=== PATIENT | male | born 1995 | race Hispanic/Latino ===

== ENCOUNTER 2020-08-06 19:09 | Emergency (ER) | payer BC ==
[~2020-08-06] VITALS: Ht 170.2 cm; Wt 95.0 kg
[2020-08-06] MEDS ORDERED: AMOXICILLIN875 MG PO (20:01)
[2020-08-06 21:00] VITALS: BP 145/94
== END 2020-08-06 21:00 | disposition home or self-care (01) | DRG 153 ==
LOC: ED 19:09
DX: J02.9 Acute pharyngitis, unspecified (principal); F17.210 Nicotine dependence, cigarettes, uncomplicated; Z20.822 Contact with and (suspected) exposure to COVID-19

== ENCOUNTER 2020-10-04 13:03 | Emergency (ER) | payer BC ==
[~2020-10-04 13:03] MED LIST: AMOXICILLIN875 MG PO
[2020-10-04 16:02] LABS: URINE BILIRUBIN - DIPSTICK NEGATIVE (NEGATIVE); URINE BLOOD DIPSTICK NEGATIVE (NEGATIVE); URINE COLOR YELLOW; URINE GLUCOSE - DIPSTICK NEGATIVE (NEGATIVE); URINE KETONE NEGATIVE (NEGATIVE); URINE LEUK ESTERASE NEGATIVE (NEGATIVE); URINE PROTEIN - DIPSTICK NEGATIVE (NEG-TRACE); URINE SPECIFIC GRAVITY >=1.030; URINE UROBILINOGEN - DIPSTICK 0.2 E.U./dL (0.2)
[2020-10-04 16:03] LABS: URINE NITRITE - DIPSTICK NEGATIVE (Negative)
[2020-10-04 16:39] VITALS: BP 119/76
== END 2020-10-04 16:41 | disposition home or self-care (01) | DRG 552 ==
LOC: ED 13:03
PROVIDERS: Family Medicine
DX: M54.5 Low back pain (principal); M54.6 Pain in thoracic spine

== ENCOUNTER 2022-05-29 20:27 | Emergency (ER) | payer SELFPAY ==
[~2022-05-29] VITALS: Ht 170.2 cm; Wt 100.0 kg
[2022-05-29 20:50] VITALS: BP 128/82
[2022-05-29 21:00] VITALS: BP 134/60
[2022-05-29 21:03] LABS: BASO% 0.2 % (0-3); EOS% 0.9 % (0-8); HEMATOCRIT 48.2 % (39.0-50.0); HEMOGLOBIN 16.5 g/dl (14.0-18.0); IMMATURE GRANULOCYTES 0.4 % (0.0-5.0); LYMPH% 19.9 % (15-41); MEAN CELL VOLUME 96.4 fL CALC (80.0-100.0); MEAN CORPUSCULAR HGB CONC 34.2 g/dL CAL (32.0-36.0); MONO% 6.2 % (2-13); NEUT# 8.76 thou/uL (1.82-7.42); NEUT% 72.4 % (42-76); RED CELL DISTRI WIDTH 13.5 % (11.5-15.5)
[2022-05-29 21:20] LABS: ALBUMIN 4.4 g/dL (3.2-5.0); ALKALINE PHOSPHATASE 84 u/l (38-126); ANION GAP 13 (6-22 (CALC)); BILIRUBIN, TOTAL 0.5 mg/dL (0.2-1.3); BUN 15 mg/dL (9-20); BUN/CREATININE RATIO 22 (12-20 (CALC)); CARBON DIOXIDE 22 mmol/l (22-30); CHLORIDE 108 mmol/l (95-108); CPK 124 u/l (55-170); CREATININE 0.7 mg/dL (0.7-1.3); ETHYL ALCOHOL 0 mg/dl (0-30); GFR FOR AFR.AMER. > 60 ML/MIN (>=60 (CALC)); GFR OTHER RACES > 60 ML/MIN (>=60 (CALC)); POTASSIUM 3.7 mmol/l (3.5-5.1); SGOT/AST 34 u/l (17-59); SODIUM 140 mmol/l (137-146); TOTAL PROTEIN 6.8 g/dL (6.3-8.2)
[2022-05-29 21:30] VITALS: BP 124/82
[2022-05-29 21:37] LABS: URINE BILIRUBIN - DIPSTICK NEGATIVE (NEGATIVE); URINE BLOOD DIPSTICK NEGATIVE (NEGATIVE); URINE COLOR YELLOW; URINE GLUCOSE - DIPSTICK NEGATIVE (NEGATIVE); URINE KETONE TRACE mg/dL (NEGATIVE); URINE LEUK ESTERASE NEGATIVE (NEGATIVE); URINE PROTEIN - DIPSTICK 30 mg/dL (NEG-TRACE); URINE SPECIFIC GRAVITY >=1.030; URINE UROBILINOGEN - DIPSTICK 0.2 E.U./dL (0.2)
[2022-05-29 21:41] LABS: URINE NITRITE - DIPSTICK NEGATIVE (Negative); URINE RBC 0-2 RBC/hpf (0-5); URINE WBC 0-2 WBC/hpf (0-5)
[2022-05-29 22:00] VITALS: BP 137/87
[2022-05-29 22:30] VITALS: BP 123/75
[2022-05-29 23:00] VITALS: BP 134/85
== END 2022-05-29 23:12 | disposition home or self-care (01) | DRG 310 ==
LOC: ED 20:27
PROVIDERS: Family Medicine
DX: R00.2 Palpitations (principal); R42 Dizziness and giddiness; F12.90 Cannabis use, unspecified, uncomplicated